=== PATIENT | female | born 1975 ===

== ENCOUNTER 2018-03-14 20:02 | Emergency (ER) | payer MEDICAID ==
[2018-03-14 20:08] VITALS: RESP 18; TEMP 97.8
[2018-03-14] MEDS ORDERED: DiphenhydrAMINE 50 mg/ml Inj IVP STA (20:47)
[2018-03-14] MEDS ORDERED: Sodium Chloride 0.9% 1,000 ML IV STA (20:47)
[2018-03-14 21:25] LABS: BASO # 0.1 K/uL (0.0-0.2); BASO % 0.6 % (0.0-2.0); EOS % 0.5 % (0.0-4.0); HEMOGLOBIN 12.3 g/dL (12.0-16.0); LYMPH % 10.6 % (20.0-40.0); MEAN CELL VOLUME 88.2 fl (81.0-99.0); MEAN CORPUSCULAR HGB CONC 32.8 g/dL (33.0-37.0); MEAN PLATELET VOLUME 9.4 fl (7.2-11.7); MONO # 0.9 K/uL (0.0-0.8); MONO % 9.4 % (0.0-10.0); NEUT # 7.2 K/uL (1.8-7.0); NEUT % 78.9 % (50.0-75.0); RBC 4.26 Mil/uL (3.80-5.20); RED CELL DISTRIBUTION WIDTH 15.2 % (11.5-14.5); WHITE BLOOD COUNT 9.1 K/uL (4.8-10.8)
[2018-03-14 21:31] LABS: ALB/GLOB RATIO 1.4 (1.0-2.1); ALBUMIN 4.1 g/dL (3.5-5.0); ALT/SGPT 38 U/L (9-52); AST/SGOT 32 U/L (14-36); BLOOD UREA NITROGEN 19 mg/dl (7-17); CALCIUM 9.6 mg/dL (8.4-10.2); GFR NON-AFRICAN AMERICAN > 60; LIPASE 183 U/L (23-300)
[2018-03-14] MEDS ORDERED: DiphenhydrAMINE 50 mg/ml Inj ONE (21:37)
[2018-03-14 21:38] LABS: BARBITURATES, UR NEGATIVE (NEGATIVE); BENZODIAZEPINES, UR NEGATIVE (NEGATIVE); OPIATES, UR NEGATIVE (NEGATIVE); PHENCYCLIDINE, UR NEGATIVE (NEGATIVE)
--- NOTE | 2018-03-14 22:33 | ED PDOC ---
HPI: Headache Time Seen by Provider: 03/14/18 20:13 Chief Complaint (Nursing): Abdominal Pain Chief Complaint (Provider): Headache, Nausea, Vomiting History Per: Patient History/Exam Limitations: no limitations Onset/Duration Of Symptoms: Days (x1) Current Symptoms Are (Timing): Still Present Additional Complaint(s): 42 y/o female with no significant PMHx presenting for evaluation of headache, nausea, and vomiting x1 day. Patient reports she ate a tuna sandwich today and went home feeling lightheaded. She states she began to have a very bad frontal headache radiating to the back associated with nausea, non-bilious, non-bloody vomiting, dizziness, and lightheadedness. She denies any blurry vision, focal weakness, or diarrhea. She also reports stomach discomfort, but denies outright pain. PCP: Johanne Noble CNP Past Medical History Reviewed: Historical Data, Nursing Documentation, Vital Signs Vital Signs: Last Vital Signs Temp 97.8 F 03/14/18 20:05 Pulse 70 03/14/18 20:05 Resp 18 03/14/18 20:05 BP 109/72 03/14/18 20:05 Pulse Ox 99 03/14/18 20:05 - Medical History PMH: No Chronic Diseases Denies: Diabetes, Hepatitis, HIV, HTN, Seizures, Sexually Transmitted Disease - Surgical History Surgical History: No Surg Hx - Family History Family History: States: Stroke (Father ) - Social History Current smoker - smoking cessation education provided: No Alcohol: None Drugs: Denies - Home Medications Home Medications: Ambulatory Orders Medication Instructions Recorded Cyclobenzaprine HCl [Flexeril] 10 mg PO HS #10 tab 08/02/15 Ibuprofen [Motrin] 600 mg PO Q6 PRN #20 tab 08/02/15 Oxycodone HCl/Acetaminophen 1 tab PO Q4 #10 tab 08/02/15 [Percocet 325 mg-5 mg] Dicyclomine [Bentyl] 20 mg PO Q12 PRN #20 tab 09/16/15 Ondansetron ODT [Zofran ODT] 4 mg PO Q6H PRN #16 odt 09/16/15 Naproxen 500 mg PO BID PRN #30 tab 02/05/16 Ondansetron ODT [Zofran ODT] 1 odt PO Q6 PRN #20 odt 03/14/18 - Allergies Allergies/Adverse Reactions: Allergies Allergy/AdvReac Type Severity Reaction Status Date / Time No Known Allergies Allergy Verified 12/12/16 09:08 Review of Systems ROS Statement: Except As Marked, All Systems Reviewed And Found Negative Eyes: Negative for: Vision Change Cardiovascular: Positive for: Light Headedness Gastrointestinal: Positive for: Nausea, Vomiting, Other (abdominal discomfort). Negative for: Abdominal Pain, Diarrhea Neurological: Positive for: Headache, Dizziness. Negative for: Weakness Physical Exam - Reviewed Nursing Documentation Reviewed: Yes Vital Signs Reviewed: Yes - Physical Exam Appears: Positive for: Uncomfortable, In Acute Distress (mild painful distress) Head Exam: Positive for: ATRAUMATIC, NORMOCEPHALIC Skin: Positive for: Warm, Dry Eye Exam: Positive for: PERRL. Negative for: Nystagmus ENT: Positive for: Pharynx Is (clear) Neck: Positive for: Painless ROM, Supple Cardiovascular/Chest: Positive for: Regular Rate, Rhythm. Negative for: Murmur Respiratory: Positive for: Normal Breath Sounds. Negative for: Respiratory Distress Gastrointestinal/Abdominal: Positive for: Normal Exam, Soft. Negative for: Tenderness, Mass, Guarding, Rebound Back: Positive for: Normal Inspection. Negative for: Decreased ROM Extremity: Positive for: Normal ROM. Negative for: Deformity Lymphatic: Negative for: Adenopathy Neurologic/Psych: Positive for: Alert, Oriented (x3), Other (negative Gilmore- Hallpike test for vertigo). Negative for: Motor/Sensory Deficits - Laboratory Results Result Diagrams: 03/14/18 21:13 03/14/18 21:13 - ECG O2 Sat by Pulse Oximetry: 99 (RA) Pulse Ox Interpretation: Normal Medical Decision Making Medical Decision Makin:46 Impression: Headache with vomiting. Differential diagnoses include, but are not limted to acute gastritis, food poisioning, and dehydration. Plan: -CT Head w/o contrast -Alcohol serum -CMP -Lipase -Magnesium -Phosphorus -Urine -Urine dipstick -CBC w/ differential -Benadryl 25mg IVP -1LNS -Reglan 10mg IV -IV insertion -Reevaluation Reviewed previous charts. Patient had 2 ER visits in past with similar presentation, reaction following seafood intake Time: 2321 --CT head FINDINGS: Brain: There is no evidence of intracranial hemorrhage. The cortical/white matter interfaces are preserved throughout the brain. There is no intracranial mass or mass effect. Benign bilateral globus pallidus calcifications are present. Midline shift: No midline shift. Ventricles: The ventricular system is normal in size and distribution. Bones/joints: The calvarium and skull base are intact. No fracture. Soft tissues: Normal. Sinuses: Trace mucosal thickening of the ethmoid sinuses, likely within normal limits. Mastoid air cells: The mastoid air cells are clear. Auditory system: Debris within the external auditory canals likely represents cerumen. IMPRESSION: No acute intracranial abnormality Pt feels better. stable for dc. reviewed findings. advised to avoid seafood until further evaluation with global account manager. Scribe Attestation: Documented by Abimael Cazares, acting as a scribe for Keerthi Turner MD. Provider Scribe Attestation: All medical record entries made by the Scribe were at my direction and personally dictated by me. I have reviewed the chart and agree that the record accurately reflects my personal performance of the history, physical exam, medical decision making, and the department course for this patient. I have also personally directed, reviewed, and agree with the discharge instructions and disposition. Disposition - Clinical Impression Clinical Impression: Headache, Reaction to food - Disposition Referrals: Johanne Noble APN [Family Provider] - (FOLLOW UP WITH JOHANNE NOBLE FOR REFERRAL TO [facility]) Disposition: Routine/Home Disposition Time: 23:30 Condition: IMPROVED Additional Instructions: AVOID SEAFOOD UNTIL YOU HAVE FURTHER EVALUATION WITH [facility] Prescriptions: Ondansetron ODT [Zofran ODT] 1 odt PO Q6 PRN #20 odt PRN Reason: Nausea/Vomiting Instructions: Headache, Adult, Food Allergy Forms: [facility] (Norwegian)
[2018-03-15 00:14] VITALS: BP 111/67; PULSE 77; O2SAT 98
--- NOTE | 2018-03-15 10:19 | CT ---
Date of service: 03/14/2018 PROCEDURE: CT HEAD WITHOUT CONTRAST. HISTORY: headache vomiting COMPARISON: None available. TECHNIQUE: Axial computed tomography images were obtained through the head/brain without intravenous contrast. Radiation dose: Total exam DLP = 726.78 mGy-cm. This CT exam was performed using one or more of the following dose reduction techniques: Automated exposure control, adjustment of the mA and/or kV according to patient size, and/or use of iterative reconstruction technique. FINDINGS: HEMORRHAGE: No intracranial hemorrhage. BRAIN: Normal dasilva-white matter differentiation and density are appreciated throughout the cerebrum and cerebellum with the brainstem appearing unremarkable as well. There is no mass effect. There is no suspicious extra-axial fluid collection and the midline brain anatomy appears diffusely unremarkable. VENTRICLES: Unremarkable. No hydrocephalus. CALVARIUM: Unremarkable. PARANASAL SINUSES: Unremarkable as visualized. No significant inflammatory changes. MASTOID AIR CELLS: Unremarkable as visualized. No inflammatory changes. OTHER FINDINGS: None. IMPRESSION: Unremarkable unenhanced head CT. No significant interval change greater prior head CT 02/05/2016. Concordant preliminary report from [facility], 03/14/2018.
== END 2018-03-15 00:13 | disposition home or self-care (01) ==
LOC: H.ER 20:02
DX: R51 Headache (principal); T78.1XXA Other adverse food reactions, not elsewhere classified, initial encounter
CPT/HCPCS: 70450; 80053; 80320; 80324; 80345; 80346; 80349; 80353; 80358; 80361; 81025; 83690; 83735; 83992; 84100; 85025; 96361; 96374; 96375; 99283; J1200; J2765; J7030